=== PATIENT | female | born 1945 | race Two or more races ===

== ENCOUNTER 2020-09-02 21:57 | Emergency (ER) | payer BC ==
[~2020-09-02] VITALS: Ht 165.1 cm; Wt 77.0 kg
[2020-09-03 01:40] VITALS: BP 145/76
[2020-09-03] MEDS ORDERED: BACITRACIN ZINC OINT UDPKT TOP ONE (01:45)
[2020-09-03] MEDS ORDERED: LIDOCAINE HCL/PF 1% 10 MG/ML 5ML VIAL IJ ONE (01:45)
[2020-09-03] MEDS ORDERED: ACETAMINOPHEN 325MG TABLET PO ONE (01:45)
== END 2020-09-03 02:40 | disposition home or self-care (01) ==
LOC: ER 21:57
DX: S01.111A Laceration without foreign body of right eyelid and periocular area, initial encounter (principal); W01.0XXA Fall on same level from slipping, tripping and stumbling without subsequent striking against object, initial encounter; Y93.89 Activity, other specified; Y92.481 Parking lot as the place of occurrence of the external cause
CPT/HCPCS: 12013; 99282; J3490